=== PATIENT | male | born 1995 | race Caucasian/White ===

== ENCOUNTER → 2017-01-12 | Outpatient (CLI) | payer OTHER ==
--- NOTE | 2017-01-12 13:54 | REP ---
Clinical: Dyspnea. Acute bronchitis. Comparison: None . Technique: PA and lateral. Findings: The mediastinum and cardiac silhouette are normal. The lung carl[place] are clear and without acute consolidation, effusion, or pneumothorax. The skeletal structures are intact and normal. Impression: 1. No acute cardiopulmonary process. If the patient remains symptomatic consider chest CT for further investigation. Signed by Arsen Bates MD 01/12/2017 01:45 P
== END | disposition home or self-care (01) ==
LOC: M ADAMS 12:57
PROVIDERS: ATTEND Physician Assistant Medical
DX: J20.9 Acute bronchitis, unspecified (principal)

== ENCOUNTER → 2017-07-10 | Outpatient (CLI) | payer OTHER ==
[~2017-07-10] MED LIST: METHACHOLINE KIT (J7674) INH ONE
--- NOTE | 2017-07-10 08:45 | PFTRPT ---
Tech: James MAURER RRT Age: 21 Sex: Male Race: Height: 68.25 Inches Weight: 189.00 Lbs BSA: 2.00 Diagnosis: R06.02 METHACHOLINE CHALLENGE REPORT: ORDERING PROVIDER: KAREN Madrid DATE OF SERVICE: 07/10/17 INTERPRETATION: The study was of excellent technical quality. Under protocol, methacholine was administered. At a dose of 2.5 mg (13.875 CDUs), a 43% decline in the FEV1 was noted. The PC20 of 0.26 is significant. Flow rates returned to baseline post bronchodilator administration. IMPRESSION: Positive methacholine challenge study. MTDD
== END ==
LOC: M CARPUL 07:58
PROVIDERS: ATTEND Nurse Practitioner Adult Health
DX: R06.02 Shortness of breath (principal)
CPT/HCPCS: 94070; J7674

== ENCOUNTER → 2018-02-03 | Outpatient (REF) | payer OTHER | LOC: M LAB REF 18:31 | DX: J02.9 Acute pharyngitis, unspecified (principal) ==

== ENCOUNTER 2021-05-18 18:44 | Emergency (ER) | payer OTHER ==
[~2021-05-18] VITALS: Ht 175.3 cm; Wt 92.1 kg
[2021-05-18 18:59] VITALS: BP 140/83
[2021-05-18] MEDS ORDERED: LIDOCAINE 1% MDV 20ML VIAL SC ONE (20:10)
[2021-05-18] MEDS ORDERED: NEOSPORIN OINT 0.9 GM PKT TOP ONE (20:50)
--- NOTE | 2021-05-18 21:32 | REPVR ---
PROCEDURE INFORMATION: Exam: XR Left Hand Exam date and time: 05/18/2021 8:15 PM Age: 25 years old Clinical indication: Other: Lac/ fb; Additional info: Laceration/fb TECHNIQUE: Imaging protocol: XR Left hand. Views: 3 or more views. COMPARISON: No relevant prior studies available. FINDINGS: Bones/joints: Bony structures are aligned normally. Degree of osseous mineralization is age-appropriate. No acute fracture. No concerning osseous lesion. Joint spaces of the hand are well-maintained. Soft tissues: Soft tissue air air within the thenar soft tissues and thumb without identifiable foreign body IMPRESSION: Open soft tissue injuries involving the thumb and thenar soft tissues without evidence of foreign body, osseous injury or air within the articulations of the thumb Electronically signed by: Jc Chambers On 05/18/2021 21:31:53 PM
== END 2021-05-18 21:05 | disposition home or self-care (01) ==
LOC: M ED 18:44
DX: S61.012A Laceration without foreign body of left thumb without damage to nail, initial encounter (principal); W29.8XXA Contact with other powered hand tools and household machinery, initial encounter; Y92.009 Unspecified place in unspecified non-institutional (private) residence as the place of occurrence of the external cause; Y93.89 Activity, other specified; Y99.8 Other external cause status; F17.200 Nicotine dependence, unspecified, uncomplicated